=== PATIENT | male | born 1950 | race Asian ===

== ENCOUNTER 2017-06-01 04:24 | Emergency (ER) | payer OTHER ==
[~2017-06-01] VITALS: Ht 190.5 cm; Wt 119.3 kg
[2017-06-01 05:07] LABS: PLATELET COUNT 229 K/uL (142-355)
[2017-06-01 05:16] LABS: POTASSIUM 3.5 mmol/L (3.6-5.2)
[2017-06-01 05:53] VITALS: BP 174/95; TEMP 98.2
== END 2017-06-01 05:55 | disposition home or self-care (01) ==
LOC: ED 04:24
DX: R11.2 Nausea with vomiting, unspecified (principal)
CPT/HCPCS: 36415; 80053; 82150; 83690; 85027; 96372; 99283; J2405

== ENCOUNTER 2017-06-24 07:58 | Day surgery (SDC) | payer OTHER ==
[~2017-06-24] VITALS: Ht 30.5 cm; Wt 0.5 kg
[2017-06-24 11:33] LABS: PLATELET COUNT 221 K/uL (142-355)
[2017-06-24 11:42] LABS: POTASSIUM 3.9 mmol/L (3.6-5.2); SODIUM 139 mmol/L (136-145)
== END 2017-06-24 14:55 | disposition home or self-care (01) ==
LOC: OR 07:58
PROVIDERS: Student in an Organized Health Care Education/Training Program
PROC: 0WUF0JZ Supplement Abdominal Wall with Synthetic Substitute, Open Approach (ICD-10-PCS; principal; 2017-06-24)
DX: K43.2 Incisional hernia without obstruction or gangrene (principal)
CPT/HCPCS: 80053; 85027; J0132; J0330; J0690; J1100; J1170; J2001; J2250; J2405; J2704; J2710; J2765; J3010; J3490; S0028

== ENCOUNTER 2017-06-30 13:55 | Outpatient (CLI) | payer OTHER | END 2017-06-30 14:01 | disposition short-term general hospital (02) | LOC: AMB 13:55 | DX: R41.82 Altered mental status, unspecified (principal) | CPT/HCPCS: A0425; A0427 ==

== ENCOUNTER 2017-06-30 14:01 | Inpatient (IN) | payer OTHER ==
[~2017-06-30] VITALS: Ht 188 cm; Wt 117.0 kg
[2017-06-30] VITALS (14 sets, daily range): BP systolic 73–113; BP diastolic 41–57; TEMP 88.7–97.8
[2017-06-30 14:31] LABS: PLATELET COUNT 140 K/uL (142-355)
[2017-06-30 15:34] LABS: PARTIAL THROMBOPLASTIN TIME 30.1 SECONDS (24.5-33.6)
[2017-06-30 15:39] LABS: SODIUM 134 mmol/L (136-145)
[2017-06-30 15:45] LABS: POTASSIUM 7.9 mmol/L (3.6-5.2)
--- NOTE | 2017-06-30 18:45 | NUR ---
PT ARRIVED TO ICU BED 3 VIA STRETCHER, PT UNABLE TO MOVE HIMSELF TO BED, PT NON VERBAL AT THIS TIME, PT IS AWAKE AND LOOKING AROUND. SALGADO TO BSD, DRAINING BLOODY URINE. PT WILL LOOK AT WHO EVER IS TALKING TO HIM BUT MAKES NO ATTEMPTS TO RESPOND TO ANY THING BEING SAID
[2017-06-30 23:16] LABS: PLATELET COUNT 122 K/uL (142-355)
[2017-07-01] VITALS (50 sets, daily range): BP systolic 70–128; BP diastolic 27–56; TEMP 89.2–97.9; Ht 188 cm; Wt 117.0 kg
--- NOTE | 2017-07-01 00:05 | NUR ---
DR. CHRISTINA AT BEDSIDE WITH PT FOR APPROX 10 MINUTES NOW. AWAITING NEW ORDERS.
[2017-07-01 03:22] LABS: POTASSIUM 7.5 mmol/L (3.6-5.2)
--- NOTE | 2017-07-01 05:19 | NUR ---
07/01/2017 AT 0430INCREASED DOPAMINE DRIP TO 15MCG/KG/MIN, WILL CONTINUE TO MONITOR B/P AND MAP CLOSELY.
--- NOTE | 2017-07-01 05:21 | NUR ---
07/01/2017 AT 0240INCREASED DOPAMINE DRIP TO 10MCG/KG/MIN(44.1ML/HR), WILL CONTINUE TO MONITOR B/P AND MAP. MANUAL B/P WAS 80/30, PULSE 83. PER VITALS MACHINE AT 0230 B/P WAS 80/27(MAP 45), PULSE 85, O2 SAT 100% ON 2LPM VIA NC.
--- NOTE | 2017-07-01 05:33 | NUR ---
06/30/17 AT 2230APPLIED WARMING BLANKET(SET AT 98.6 F), RECTAL PROBE ALSO INSERTED WITH NO PROBLEMS. TEMP IS 88.5 PER RECTAL PROBE. WILL MONITOR TEMP CLOSELY.
--- NOTE | 2017-07-01 05:37 | NUR ---
07/01/17 AT 0300DR. SANFORD AT BEDSIDE SEEING PT AGAIN.
[2017-07-01 06:22] LABS: PLATELET COUNT 115 K/uL (142-355)
[2017-07-01 06:39] LABS: POTASSIUM 7.6 mmol/L (3.6-5.2)
--- NOTE | 2017-07-01 07:18 | NUR ---
ATTEMPTED TO CALL DR. HOLM VIA CELL PHONE, WENT TO VOICEMAIL.
--- NOTE | 2017-07-01 08:00 | NUR ---
DR CHRISTINA HERE CHECKED PT RECIEVED ORDERS. TEMP 97.9 BLANKET OFF PT FEELS WARM. DR HOLM CALLED. CALLED TO ELLIOTT AUSTIN RN.
--- NOTE | 2017-07-01 08:33 | NUR ---
07/01/2017 [address] 0030DR. CHRISTINA AT BEDSIDE, URINE OUTPUT VIA SALGADO IS ONLY 35ML AT THIS TIME.
--- NOTE | 2017-07-01 08:35 | NUR ---
07/01/2017 AT 0146INCREASED DOPAMINE DRIP TO 5MCG/KG/MIN. WILL CONTINUE TO MONITOR B/P AND MAP.
--- NOTE | 2017-07-01 08:36 | NUR ---
07/01/2017 AT 0120BUCK LI RN NOTIFIED JOHANNA IN PHARMACY ABOUT GETTING KAYEXALATE(WILL NOT LET STAFF OVER RIDE MED), PERMISSION GIVEN TO GET MEDICATION FROM PHARMACY.
--- NOTE | 2017-07-01 08:40 | NUR ---
DR HOLM HERE CHECKED PATIENT, ELLIOTT AUSTIN RN HERE CHECKED CHART WILL CALL DR KAT. LEVOPHED DRIP STARTED ORDERED. INCREASED TO 6 MCG/MIN IV FLUIDS TO 75 ORDERED WILL MONITOR B/P
--- NOTE | 2017-07-01 08:41 | NUR ---
@ [address] NGT IN PT NARES, FIRST TRY WAS UNSUCCESSFUL, TUBE WOULD NOT ADVANCE, SECOND TRY WAS UNSUCCESSFUL, TUBE CURLED UP IN PT MOUTH, USED HURRICANE SPRAY HOPING TO NUMB HIS THROAT TO PLACE NGT, THIRD ATTEMPT WAS UNSUCCESSFUL, TUBE CURLED UP IN THROAT. DECISION MADE TO D/C TRYING TO PLACE NGT.
--- NOTE | 2017-07-01 09:52 | NUR ---
DR CHRISTINA HERE SPOKE WITH DR KAT, RECIEVED NEW ORDERS. LEVOPHED DRIP INCREASED 20 MCG. ULTRASOUND PELVIC DONE RECIEVED NA BICARB ORDERED. EXPLAINED TO PT WHAT WE WERE DOING FLUSHED SALGADO CATH WITH STERILE IRRIGATION SOLUTION. NO CLOTS DRAINS BACK EASILY FLUSHED EASILY.
--- NOTE | 2017-07-01 10:02 | NUR ---
2ND AMP OF ELFEGO PISANO PUSHED. RADIOLOGY STAFF AT TO TAKE PT FOR CT SCAN.
--- NOTE | 2017-07-01 10:26 | NUR ---
PT BACK FROM CT.
--- NOTE | 2017-07-01 10:28 | NUR ---
ONE AMP OF CALCIUM GLUCONATE PUSHED.
--- NOTE | 2017-07-01 10:55 | NUR ---
3RD AMP OF NA BICARB PUSHED. DR. HOLM AT TO PERFORM TEMPORARY DIALYSIS CATHETER.
--- NOTE | 2017-07-01 11:00 | NUR ---
DR HOLM HERE SPOKE WITH PT AND HIS , CONSENT SIGN FOR PLACEMENT DIALYSIS LINE RIGHT SIDE OF NECK, PT ESA WELL UP IN BED. CONTINUES ON LEVOPHED DRIP AT 20 MCG B/P 100/48. LINE PLACED ORDER CHEST X RAY.
--- NOTE | 2017-07-01 12:11 | NUR ---
DR HOLM CAME BACK BY AFTER CHEST X RAY PULLED LINE BACK 1.5 CM AND RESTITCHED LINE. WILL REPEAT CHEST X RAY FOR PLACEMENT. FAMILY [id number] HERE FOR VISIT.
--- NOTE | 2017-07-01 12:41 | NUR ---
ECHO DONE BY RESP DEPT, BLOOD DRAWN ORDERED LINES FLUSHED CLEANED. DR CHRISTINA VISITED TALKED WITH FAMILY MEMBERS.
--- NOTE | 2017-07-01 13:10 | NUR ---
DAMIAN FROM [facility] IN [place] CALLED TO GIVE BED ASSIGNMENT. PT TO BE ADMITTED TO BED 1447.
[2017-07-01 13:28] LABS: POTASSIUM 8.1 mmol/L (3.6-5.2)
--- NOTE | 2017-07-01 13:40 | NUR ---
CALLED REPORT TO SHERWIN AT [facility] IN [place].
--- NOTE | 2017-07-01 13:40 | NUR ---
ELLIOTT AUSTIN RN ON THE PHONE WITH DR KAT REPORT LABS. RECIEVED NEW ORDERS. DR CHRISTINA HERE AWARE OF CRITICAL LABS.
--- NOTE | 2017-07-01 14:00 | NUR ---
AIR EVAC LIFETEAM AT BS TO PREP PATIENT FOR TRANSPORT VIA HELICOPTER. PT STABLE AND NAD NOTED.
--- NOTE | 2017-07-01 14:15 | NUR ---
ASSIST BY NI SAUCEDO RN GIVING BICARB AND CALCIUM ORDERED. HOB UP PT ESA OK. FAMILY MEMBERS AT BEDSIDE.
--- NOTE | 2017-07-01 14:41 | NUR ---
PT DISCHARGED FROM ICU TO GO TO [facility] VIA [facility]. FAMILY MEMBERS HERE TO GO TO [place]. PT DISCHARGED FROM ICU.
== END 2017-07-01 14:30 | disposition short-term general hospital (02) | DRG 872 ==
LOC: ED 14:01 → ICU 15:30
PROVIDERS: Emergency Medicine
PROC: 05HM33Z Insertion of Infusion Device into Right Internal Jugular Vein, Percutaneous Approach (ICD-10-PCS; principal; 2017-07-01)
PROC: B543ZZA Ultrasonography of Right Jugular Veins, Guidance (ICD-10-PCS; 2017-07-01)
DX: A41.89 Other specified sepsis (principal); N17.8 Other acute kidney failure; E87.4 Mixed disorder of acid-base balance; E87.2 Acidosis; R41.82 Altered mental status, unspecified; E66.01 Morbid (severe) obesity due to excess calories; Z68.33 Body mass index [BMI] 33.0-33.9, adult; E86.0 Dehydration; E11.9 Type 2 diabetes mellitus without complications; K52.89 Other specified noninfective gastroenteritis and colitis; E87.5 Hyperkalemia; R11.2 Nausea with vomiting, unspecified; I10 Essential (primary) hypertension; I95.89 Other hypotension; E83.41 Hypermagnesemia; N40.1 Benign prostatic hyperplasia with lower urinary tract symptoms; R33.8 Other retention of urine; K80.80 Other cholelithiasis without obstruction; D64.89 Other specified anemias
CPT/HCPCS: 36415; 36600; 80048; 80053; 80307; 81000; 82150; 82550; 82728; 82747; 82805; 82962; 83540; 83550; 83605; 83690; 83735; 83880; 84100; 84153; 84466; 84484; 85027; 85610; 85730; 86140; 87040; 93005; 93306; 94760; 96374; 96375; 99285; G0479; J0610; J1265; J1815; J2543; J3490; J7060

== ENCOUNTER 2018-02-19 08:21 | Outpatient (CLI) | payer OTHER ==
[2018-02-19 09:09] LABS: PLATELET COUNT 349 K/uL (142-355)
[2018-02-19 10:02] LABS: POTASSIUM 4.3 mmol/L (3.6-5.2)
== END 2018-02-19 21:17 | disposition home or self-care (01) ==
LOC: LABW 08:21
PROVIDERS: Internal Medicine Nephrology
DX: N18.4 Chronic kidney disease, stage 4 (severe) (principal); I48.0 Paroxysmal atrial fibrillation
CPT/HCPCS: 36415; 80069; 82570; 83540; 83970; 84155; 84436; 84443; 84550; 85027